=== PATIENT | female | born 1990 | race Caucasian/White ===

== ENCOUNTER 2023-08-05 23:42 | Emergency (ER) | payer BC, SELFPAY ==
[2023-08-06 00:34] LABS: Troponin I Less than 0.010 ng/mL (< 0.028)
[2023-08-06] MEDS ORDERED: ALPRAZolam 0.25 MG TAB ONE (00:42)
[2023-08-06 00:53] LABS: #Eosinphils 0.3 thou/uL (0.0-0.7); #Monocytes 0.5 thou/uL (0.11-0.59); #Neutrophils 2.4 thou/uL (1.40-6.50); %Basophils 0.8 % (0.0-1.0); %Eosinophils 5.7 % (0.0-10.0); %Monocytes 9.8 % (0.0-10.0); %Neutrophils 46.5 % (42.0-75.0); Hematocrit 31.6 % (36.0-47.0); Hemoglobin 10.7 g/dL (12.0-16.0); Mean Corpuscular HGB CONC 33.9 g/dL (32.0-36.0); Mean Corpuscular Hemoglobin 31.3 pg (27.0-31.0); Mean Corpuscular Volume 92.4 fl (78.0-98.0); Mean Platelet Volume 9.7 fL (7.4-10.4); Platelet Count 256 10x3/uL (130-400); RBC Distribution Width 14.6 % (11.5-14.5); Red Blood Cell (RBC) Count 3.42 mill/uL (4.20-5.40); White Blood Cell (WBC) Count 5.1 10x3/uL (4.8-10.8)
[2023-08-06 01:11] LABS: BHCG - Serum Negative (NEGATIVE); Pregs Control Background? CLEAR/WHITE (CLR/WHITE); Pregs Control Bar Appear? YES (CONTROL BAR)
[2023-08-06 01:19] LABS: ALT (SGPT) 26 U/L (8-55); AST (SGOT) 43 U/L (5-34); Albumin 4.1 g/dL (3.5-5.0); Alkaline Phosphatase 34 U/L (40-110); Anion Gap 13 mmol/L (10-20); BUN (Urea Nitrogen) 11 mg/dL (7.0-18.7); Bilirubin, Total 0.4 mg/dL (0.2-1.2); Calc. Creatinine Clearance 0 mL/min (70-130); Calcium 8.6 mg/dL (7.8-10.44); Carbon Dioxide 22 mmol/L (22-29); Chloride 111 mmol/L (98-107); Estimated GFR 120; Globulin 2.6 g/dL (2.4-3.5); Glucose 73 mg/dL (70-105); Potassium 3.5 mmol/L (3.5-5.1); Protein, Total 6.7 g/dL (6.0-8.3); Sodium 142 mmol/L (136-145)
[2023-08-06] MEDS ORDERED: Iopamidol 370 76% 100 ML VIAL ONE (10:43)
== END 2023-08-06 03:19 | disposition home or self-care (01) ==
LOC: ERS 23:42
DX: F41.9 Anxiety disorder, unspecified (principal); Z76.0 Encounter for issue of repeat prescription; Z79.899 Other long term (current) drug therapy
CPT/HCPCS: 36415; 71045; 74177; 80053; 84484; 84703; 85025; 93005; Q9967